=== PATIENT | male | born 1965 | race Caucasian/White ===

== ENCOUNTER 2021-08-11 19:59 | Emergency (ER) | payer SELFPAY ==
[~2021-08-11] VITALS: Ht 175.2 cm; Wt 75.0 kg
--- NOTE | 2021-08-11 20:10 | ED Fall/Injury ---
General Stated Complaint: FALL Source: patient Exam Limitations: no limitations History of Present Illness Date Seen by Provider: Aug 11, 2021 Time Seen by Provider: 19:52 Initial Comments Patient presents ER by EMS with chief complaint that he was at the lesion walked out and fell onto his left face. Is complaining of pain in his left face and eye. No loss of consciousness. Little bit of nausea but no vomiting. He says he is not on blood thinner. He has a history of GERD but does not follow with a doctor. He is up here from [place] visiting with his mother. Claims to be a chronic alcoholic and his last drink was within the last hour Lenny and Coke. He is not having pain anywhere else besides his left forehead. Last tetanus vaccine was 10 years ago in [place]. Allergies and Home Medications Allergies Coded Allergies: No Known Drug Allergies (Unverified , 08/11/21) Patient Home Medication List Home Medication List Reviewed: Yes Review of Systems Review of Systems Constitutional: No chills, No diaphoresis Eyes: Denies Blindness, Denies Blurred Vision Ears, Nose, Mouth, Throat: denies ear pain, denies ear discharge Respiratory: No cough, No short of breath Cardiovascular: No chest pain, No edema, No Hx of Intervention, No palpitations Gastrointestinal: No abdominal pain; nausea; No vomiting Genitourinary: No discharge, No dysuria Musculoskeletal: No back pain, No joint pain All Other Systems Reviewed Negative Unless Noted: Yes Past Eyctkvp-Lrrvna-Iruupa Hx Patient Social History Tobacco Use?: No Smokeless Tobacco Frequency: Current Everyday User Use of E-Cig and/or Vaping dev: No Substance use?: Yes Substance type: Marijuana Alcohol Use?: Yes Alcohol type: Hard Liquor Alcohol Frequency: Daily Physical Exam Vital Signs Capillary Refill : Height, Weight, BMI Height: '" Weight: lbs. oz. kg; BMI Method: General Appearance: WD/WN, mild distress HEENT: PERRL/EOMI (3 mm reactive bilateral), normal ENT inspection (Negative for raccoon eyes or hartman sign or hemotympanum), TMs normal; No pharynx normal (Edentulous) Neck: non-tender, full range of motion, supple, normal inspection Cardiovascular: normal peripheral pulses, regular rate, rhythm Respiratory: no respiratory distress, no accessory muscle use Gastrointestinal: non tender, soft Extremities: non-tender, normal capillary refill Neurologic/Psychiatric: alert, normal mood/affect, oriented x 3 Skin: other (Curvilinear 2.5 cm laceration lateral and over the left.) Serene Coma Score Best Eye Response: (4) Open Spontaneously Best Verbal Response: (5) Oriented Best Motor Response: (6) Obeys Commands Shelby Total: 15 Procedures/Interventions Wound Location: Face Other Wound Location Over and lateral to Left Eye Wound Length (cm): 2.5 Wound's Depth, Shape: linear, flap Wound Explored: no foreign body removed Irrigated w/ Saline (ccs): 100 Betadine Prep?: Yes (Chlorhexidine) Anesthesia: 1% Lidocaine Volume Anesthetic (ccs): 2 Wound Debrided: minimal Suture: Prolene Suture Size: 5-0 Number of Sutures: 4 Layer Closure?: 0 Number Deep Layer Sutures: 0 Sterile Dressing Applied?: Yes Progress/Results/Core Measures Results/Orders My Orders Orders - FABIENNE STRATTON Ct Head/Cervical Spine Wo (08/11/21 20:04) Ondansetron Injection (Zofran Injectio (08/11/21 20:15) Dipht,Pertuss(Acell),Tet Adult (Boostrix (08/11/21 20:15) Hydrocodone/Apap 5/325 Tablet (Lortab 5 (08/11/21 21:00) Medications Given in ED Current Medications Medications Dose Ordered Sig/Lauren Route Start Time Stop Time Status Last Admin Dose Admin Acetaminophen/ Hydrocodone Bitart 1 ea ONCE ONCE PO 08/11/21 21:00 08/11/21 21:01 DC 08/11/21 21:03 1 EA Diphtheria/ Tetanus/Acell Pertussis 0.5 ml ONCE ONCE IM 08/11/21 20:15 08/11/21 20:16 DC 08/11/21 20:17 0.5 ML Ondansetron HCl 4 mg ONCE ONCE IM 08/11/21 20:15 08/11/21 20:16 DC 08/11/21 20:17 4 MG Progress Progress Note : Time: 20:09 Progress Note Zofran IM and a CT of the head and neck. Will address his pain probably with hydrocodone if his head is free of intracranial hemorrhage. We will close his wounds after cleaning him up and give him a tetanus vaccine. Diagnostic Imaging Diagonstic Imaging: CT Plain Films/CT/US/NM/MRI: c-spine, head Comments [facility], [facility]. [place], [place] NAME: RENÉ ALMENDAREZ [facility] REC#: [id number] PT STATUS: REG ER : 1965 PHYSICIAN: FABIENNE STRATTON MD ADMIT DATE: 08/11/21/ER Signed Date of Exam:08/11/21 CT HEAD/CERVICAL SPINE WO PROCEDURE: CT head and CT cervical spine without contrast. TECHNIQUE: Multiple contiguous axial images were obtained through the brain and cervical spine without the use of intravenous contrast. Sagittal and coronal reformations through the cervical spine were then performed. Auto Exposure Controls were utilized during the CT exam to meet ALARA standards for radiation dose reduction. INDICATION: Injury to head and neck after trauma, fell down step. COMPARISON: None available. FINDINGS: Head: No hyperdense hemorrhage or space-occupying mass. No hydrocephalus or midline shift. No evidence of territorial infarct. Basilar cisterns are patent. No focal scalp swelling. No skull fracture. Mastoid air cells are clear. Mild mucosal thickening ethmoid sinuses and right frontal sinus. Cervical spine: No acute fracture or traumatic malalignment. No high-grade spinal canal narrowing. Airway is patent. No cervical lymphadenopathy. Visualized thyroid is normal. IMPRESSION: 1. No acute intracranial process or skull fracture. 2. No acute fracture or traumatic malalignment of the cervical spine. Dictated by: Dictated on workstation # [id number] Dict: 08/11/212038 Trans: 08/11/212041 [facility] [id number] Interpreted by: TRU MACEDO MD Electronically signed by: TRU MACEDO MD 08/11/212041 Reviewed: Reviewed by Dc Departure Impression Primary Impression: Fall Qualified Codes: W19.XXXA - Unspecified fall, initial encounter Additional Impression: Laceration of face Qualified Codes: S01.81XA - Laceration without foreign body of other part of head, initial encounter Disposition: 01 HOME, SELF-CARE Condition: Stable Departure-Patient Inst. Decision time for Depature: 21:16 Referrals: UNKNOWN (PCP/Family) Primary Care Physician Patient Instructions: Laceration Repair With Stitches ED Add. Discharge Instructions: Keep the wound clean with regular soap and water, shampoo and showers only. Do not submerge the wound under water such as on the bathtub or swimming. You may apply clean dry gauze dressing daily or more frequently for soiling especially when you are going to be in a reggie, dirty environment. The sutures can come out in 7 to 10 days if you will return to the ER we will not charge anything extra to remove them. If the wound becomes red hot swollen or has drainage then you should follow-up with your doctor sooner. Do not use hydrogen peroxide, alcohol, iodine or chlorhexidine as this will d elay wound healing. Ice applied to the swelling beside your left eye 20 minutes every 2 hours for the first 2 days can help reduce swelling. Tylenol 1000 mg every 8 hours as necessary for pain. Ibuprofen 800 mg every 8 hours as necessary for pain. FABIENNE STRATTON Aug 11, 2021 20:10
[2021-08-11] MEDS ORDERED: TETANUS,DIPTH,PERTUSS P/F (BOOSTRIX) 0.5 ML VIAL IM ONE (20:15)
[2021-08-11] MEDS ORDERED: ONDANSETRON 4 MG/2 ML (SDV) Z0FRAN IM ONE (20:15)
--- NOTE | 2021-08-11 20:44 | Diagnostic Imaging Report ---
PROCEDURE: CT head and CT cervical spine without contrast. TECHNIQUE: Multiple contiguous axial images were obtained through the brain and cervical spine without the use of intravenous contrast. Sagittal and coronal reformations through the cervical spine were then performed. Auto Exposure Controls were utilized during the CT exam to meet ALARA standards for radiation dose reduction. INDICATION: Injury to head and neck after trauma, fell down step. COMPARISON: None available. FINDINGS: Head: No hyperdense hemorrhage or space-occupying mass. No hydrocephalus or midline shift. No evidence of territorial infarct. Basilar cisterns are patent. No focal scalp swelling. No skull fracture. Mastoid air cells are clear. Mild mucosal thickening ethmoid sinuses and right frontal sinus. Cervical spine: No acute fracture or traumatic malalignment. No high-grade spinal canal narrowing. Airway is patent. No cervical lymphadenopathy. Visualized thyroid is normal. IMPRESSION: 1. No acute intracranial process or skull fracture. 2. No acute fracture or traumatic malalignment of the cervical spine. Dictated by: Dictated on workstation # [id number]
[2021-08-11] MEDS ORDERED: HYDROcodone/APAP 5 MG/325 MG (LORTAB) TAB PO ONE (21:00)
[2021-08-11 21:32] VITALS: BP 137/74
== END 2021-08-11 21:23 | disposition home or self-care (01) ==
LOC: ER 20:00
DX: S01.81XA Laceration without foreign body of other part of head, initial encounter (principal); F17.200 Nicotine dependence, unspecified, uncomplicated; R40.2410 Glasgow coma scale score 13-15, unspecified time; Z23 Encounter for immunization; W18.30XA Fall on same level, unspecified, initial encounter
CPT/HCPCS: 12011; 12051; 70450; 72125; 90715

== ENCOUNTER 2021-08-28 09:43 | Emergency (ER) | payer SELFPAY ==
[~2021-08-28] VITALS: Ht 175 cm; Wt 86.1 kg
[2021-08-28 09:48] VITALS: BP 156/85
== END 2021-08-28 10:19 | disposition home or self-care (01) ==
LOC: EDUNIT# 09:43 → ER 09:45
DX: Z48.02 Encounter for removal of sutures (principal)